=== PATIENT | female | born 1940 | race Caucasian/White ===

== ENCOUNTER 2018-04-25 09:57 | Inpatient (IN) | payer OTHER ==
[2018-04-25] VITALS (14 sets, daily range): BP systolic 112–250
[~2018-04-25] VITALS: Ht 167.6 cm; Wt 91.2 kg
[2018-04-25] MEDS ORDERED: hydrALAZINE HCL 20 MG/ML VIAL IVP ONE (10:15)
[2018-04-25] MEDS ORDERED: NITROGLYCERIN 1 INCH (GM) OINT. TP ONE (10:15)
[2018-04-25 10:37] LABS: HEMATOCRIT 46.4 % (36-48); HEMOGLOBIN 15.1 g/dL (12.0-16.0); MEAN CORPUSCULAR HEMOGLOBIN 30 pg (27-31); MEAN CORPUSCULAR HGB CONC 33 % (32-36); MEAN CORPUSCULAR VOLUME 92 fL (79.0-98.0); PLATELET COUNT (AUTO) 361 K/uL (130-430); RED BLOOD CELL COUNT(AUTO) 5.06 MIL/uL (4.2-6.2); RED CELL DISTRIBUTION WIDTH 14.1 % (9.0-15.0); WHITE BLOOD COUNT (AUTO) 21.4 K/uL (4.8-10.8)
[2018-04-25 10:48] LABS: ANION GAP 6 (5-15); CALCIUM 10.1 mg/dL (8.4-11.0); CHLORIDE 101 mmol/L (98-107); GLUCOSE 197 mg/dL (70-99); POTASSIUM 4.5 mmol/L (3.5-5.1); SODIUM SERUM 137 mmol/L (136-145); UREA NITROGEN, BLOOD 13 mg/dL (8-21)
[2018-04-25 10:52] LABS: ALANINE AMINOTRANSFERASE 32 U/L (12-78); ALBUMIN 2.9 g/dL (3.4-4.8); ASPARTATE AMINOTRANSFERASE 49 U/L (10-37); TOTAL BILIRUBIN 1.4 mg/dL (0.0-1.0)
[2018-04-25 10:54] LABS: INR 1.2 (0.8-1.2); PROTHROMBIN TIME 11.9 SECS (9.5-12.5)
[2018-04-25] MEDS ORDERED: ONDANSETRON HCL 4 MG/2 ML VIAL IVP ONE (11:00)
[2018-04-25] MEDS ORDERED: MORPHINE 2 MG/ML INJ. SYRINGE IVP ONE (11:00)
[2018-04-25 11:10] LABS: BAND % (MANUAL) 16 % (0-6); BASOPHILS % (MANUAL) 0 % (0-2); EOSINOPHILS % (MANUAL) 2 % (0-7); LYMPHOCYTES % (MANUAL) 5 % (20-46); MONOCYTES % (MANUAL) 5 % (0-11)
[2018-04-25] MEDS ORDERED: cefTRIAXone 1 GM in D5W 50 ML IV ONE (11:15)
[2018-04-25] MEDS ORDERED: cefTRIAXone 1 GM VIAL ONE (11:17)
[2018-04-25] MEDS ORDERED: FAMOTIDINE 20 MG TABLET PO ONE (12:30)
[2018-04-25] MEDS ORDERED: ACETAMINOPHEN 325 MG TABLET PO PRN (12:30)
[2018-04-25] MEDS ORDERED: LACT1CAP69 PO (12:51)
[2018-04-25] MEDS ORDERED: LACT10SO7 PO (12:51)
[2018-04-25] MEDS ORDERED: ACET-2165 PO (12:51)
[2018-04-25] MEDS ORDERED: IPRA3AMP9 INH (12:51)
[2018-04-25] MEDS ORDERED: LISI10TA5 PO (12:51)
[2018-04-25] MEDS ORDERED: AZIT250T PO (12:51)
[2018-04-25] MEDS ORDERED: OXYC-580 PO (12:51)
[2018-04-25] MEDS ORDERED: FLEETMO RC (12:51)
[2018-04-25] MEDS ORDERED: PRO40 PO (12:51)
[2018-04-25] MEDS ORDERED: CARV12.548 PO (12:51)
[2018-04-25] MEDS ORDERED: DOCU-144 PO (12:51)
[2018-04-25] MEDS ORDERED: ALBU2.5V7 INH (12:51)
[2018-04-25] MEDS ORDERED: MOM PO (12:51)
[2018-04-25] MEDS ORDERED: ROCPM1 IV (12:51)
[2018-04-25] MEDS ORDERED: CYAN250014 PO (12:51)
[2018-04-25] MEDS ORDERED: ASCO500T20 PO (12:51)
[2018-04-25] MEDS ORDERED: IPRA4AER INH ×2 (12:51)
[2018-04-25] MEDS ORDERED: BISA10SU61 RC (12:51)
[2018-04-25] MEDS ORDERED: PRED20TA PO (12:51)
[2018-04-25] MEDS ORDERED: DONE10TA44 PO (12:51)
[2018-04-25] MEDS ORDERED: MELA3TAB PO (12:51)
[2018-04-25] MEDS ORDERED: PERC10 PO ×2 (12:51)
[2018-04-25] MEDS ORDERED: DIVA500T4 PO (12:51)
[2018-04-25] MEDS ORDERED: POLY119P15 PO (12:51)
[2018-04-25] MEDS ORDERED: FURO-150 PO (12:51)
[2018-04-25] MEDS ORDERED: NEU300 PO (12:51)
[2018-04-25] MEDS: PIPERACILLIN/TAZO 3.375/DEX-IS 50 ML IV SCH ×3 (13:43→23:34)
[2018-04-25] MEDS ORDERED: MILK OF MAGNESIA 30 ML UDC PO PRN (14:15)
[2018-04-25] MEDS: IPRATROPIUM/ALBUTEROL SULFATE 3 ML AMPUL.NEB (DUONEB) INH SCH ×3 (15:17→23:32)
[2018-04-25] MEDS ORDERED: methylPREDNISolone SOD SUCC/PF 62.5 MG/ML VIAL IVP ONE (15:45)
[2018-04-25] MEDS ORDERED: FUROSEMIDE 20 MG/2 ML VIAL IVP ONE (15:45)
[2018-04-25] MEDS: GABAPENTIN 300 MG CAPSULE PO SCH ×2 (16:14→21:15)
[2018-04-25 16:29] LABS: BILIRUBIN,URINE 1+ (NEGATIVE); BLOOD, URINE 1+ (NEGATIVE); CLARITY/URINE SL CLOUDY (CLEAR); COLOR,URINE YELLOW (YELLOW); GLUCOSE,URINE NEGATIVE (NEGATIVE); KETONES,URINE TRACE (NEGATIVE); LEUKOCYTE ESTERASE ,URINE NEGATIVE (NEGATIVE); NITRITE, URINE NEGATIVE (NEGATIVE); PROTEIN URINE 3+ (NEGATIVE); UROBILINOGEN,URINE >=8 (0.2-1.0)
[2018-04-25 16:34] LABS: BACTERIA,URINE MODERATE /HPF (None Seen); RBC,URINE 0-3 /HPF (0-3); WBC,URINE 0-3 /HPF (0-3)
[2018-04-25] MEDS ORDERED: IBUPROFEN 400 MG TABLET PO PRN (17:00)
[2018-04-25] MEDS ORDERED: AZITHROMYCIN 500 MG in NS 250 ML IV SCH (18:00)
[2018-04-25] MEDS: INSULIN ASPART 100 UNITS/ML, 10 ML VIAL (NovoLOG) SUBCUT PRN ×2 (19:27→23:10)
[2018-04-25] MEDS: CARVEDILOL 12.5 MG TABLET (COREG) PO SCH (21:15)
[2018-04-25] MEDS: DIVALPROEX SODIUM 500 MG TAB.SR.24H (DEPAKOTE ER) PO SCH (21:15)
[2018-04-25] MEDS: DONEPEZIL HCL 5 MG TABLET (ARICEPT) PO SCH (21:16)
[2018-04-25] MEDS: methylPREDNISolone SOD SUCC/PF 62.5 MG/ML VIAL IVP SCH (21:19)
[2018-04-26] VITALS (18 sets, daily range): BP systolic 107–164
[2018-04-26] MEDS: IPRATROPIUM/ALBUTEROL SULFATE 3 ML AMPUL.NEB (DUONEB) INH SCH ×6 (03:22→23:10)
[2018-04-26 06:27] LABS: BASOPHILS % (AUTO) 0.2 % (0.0-2.0); EOSINOPHILS % (AUTO) 0.1 % (0.0-4.0); HEMATOCRIT 35.4 % (36-48); HEMOGLOBIN 11.6 g/dL (12.0-16.0); LYMPHOCYTES # (AUTO) 0.4 K/uL (1.0-5.5); LYMPHOCYTES % (AUTO) 5.4 % (20.5-51.5); MEAN CORPUSCULAR HEMOGLOBIN 30 pg (27-31); MEAN CORPUSCULAR HGB CONC 33 % (32-36); MEAN CORPUSCULAR VOLUME 92 fL (79.0-98.0); MONOCYTES # (AUTO) 0.3 K/uL (0.0-1.0); MONOCYTES % (AUTO) 4.7 % (1.7-9.3); NEUTROPHILS # (AUTO) 6.6 K/uL (1.8-7.7); NEUTROPHILS % (AUTO) 89.6 % (40.0-70.0); PLATELET COUNT (AUTO) 175 K/uL (130-430); RED BLOOD CELL COUNT(AUTO) 3.84 MIL/uL (4.2-6.2); RED CELL DISTRIBUTION WIDTH 14.1 % (9.0-15.0); WHITE BLOOD COUNT (AUTO) 7.3 K/uL (4.8-10.8)
[2018-04-26] MEDS: PIPERACILLIN/TAZO 3.375/DEX-IS 50 ML IV SCH ×4 (06:43→23:03)
[2018-04-26] MEDS: methylPREDNISolone SOD SUCC/PF 62.5 MG/ML VIAL IVP SCH ×3 (06:47→21:43)
[2018-04-26 07:37] LABS: ANION GAP 5 (5-15); CALCIUM 9.9 mg/dL (8.4-11.0); CHLORIDE 103 mmol/L (98-107); CREATININE 0.71 mg/dL (0.55-1.30); GLUCOSE 129 mg/dL (70-99); POTASSIUM 3.3 mmol/L (3.5-5.1); SODIUM SERUM 141 mmol/L (136-145); UREA NITROGEN, BLOOD 20 mg/dL (8-21)
[2018-04-26 07:52] LABS: ALANINE AMINOTRANSFERASE 19 U/L (12-78); ALBUMIN 2.2 g/dL (3.4-4.8); ASPARTATE AMINOTRANSFERASE 10 U/L (10-37); TOTAL BILIRUBIN 0.6 mg/dL (0.0-1.0)
[2018-04-26] MEDS ORDERED: POTASSIUM CHLORIDE 20 MEQ TAB.PRT.SR PO ONE (10:45)
[2018-04-26] MEDS ORDERED: ENOXAPARIN SODIUM 40 MG/0.4 ML SYRINGE SUBCUT ONE (11:00)
[2018-04-26] MEDS: LISINOPRIL 10 MG TABLET (PRINIVIL) PO SCH (12:01)
[2018-04-26] MEDS: FUROSEMIDE 20 MG/2 ML VIAL IVP SCH (12:01)
[2018-04-26] MEDS: FAMOTIDINE 20 MG TABLET PO SCH (12:02)
[2018-04-26] MEDS: CARVEDILOL 12.5 MG TABLET (COREG) PO SCH ×2 (12:02→21:43)
[2018-04-26] MEDS: GABAPENTIN 300 MG CAPSULE PO SCH ×3 (12:02→21:39)
[2018-04-26] MEDS: DOCUSATE SODIUM 100 MG CAPSULE PO SCH (12:02)
[2018-04-26] MEDS: DIVALPROEX SODIUM 500 MG TAB.SR.24H (DEPAKOTE ER) PO SCH ×2 (12:02→21:39)
[2018-04-26] MEDS: BALSAM PERU/CASTOR OIL 60 GM OINT...G. TP SCH (17:06)
[2018-04-26] MEDS: DONEPEZIL HCL 5 MG TABLET (ARICEPT) PO SCH (21:39)
[2018-04-26] MEDS: AZITHROMYCIN 500 MG in NS 250 ML IV SCH (21:42)
[2018-04-27] MEDS: IPRATROPIUM/ALBUTEROL SULFATE 3 ML AMPUL.NEB (DUONEB) INH SCH ×6 (03:41→23:43)
[2018-04-27] MEDS: PIPERACILLIN/TAZO 3.375/DEX-IS 50 ML IV SCH ×3 (05:24→17:41)
[2018-04-27] MEDS: methylPREDNISolone SOD SUCC/PF 62.5 MG/ML VIAL IVP SCH (06:28)
[2018-04-27 06:30] LABS: BASOPHILS % (AUTO) 0.1 % (0.0-2.0); EOSINOPHILS % (AUTO) 0.1 % (0.0-4.0); HEMOGLOBIN 12.2 g/dL (12.0-16.0); LYMPHOCYTES # (AUTO) 0.4 K/uL (1.0-5.5); LYMPHOCYTES % (AUTO) 5.5 % (20.5-51.5); MEAN CORPUSCULAR HEMOGLOBIN 30 pg (27-31); MEAN CORPUSCULAR HGB CONC 33 % (32-36); MEAN CORPUSCULAR VOLUME 92 fL (79.0-98.0); MONOCYTES # (AUTO) 0.2 K/uL (0.0-1.0); MONOCYTES % (AUTO) 3.4 % (1.7-9.3); NEUTROPHILS # (AUTO) 6.5 K/uL (1.8-7.7); NEUTROPHILS % (AUTO) 90.9 % (40.0-70.0); PLATELET COUNT (AUTO) 185 K/uL (130-430); RED BLOOD CELL COUNT(AUTO) 4.04 MIL/uL (4.2-6.2); RED CELL DISTRIBUTION WIDTH 13.8 % (9.0-15.0); WHITE BLOOD COUNT (AUTO) 7.1 K/uL (4.8-10.8)
[2018-04-27 06:43] LABS: ANION GAP 4 (5-15); CALCIUM 10.7 mg/dL (8.4-11.0); CHLORIDE 103 mmol/L (98-107); CREATININE 0.65 mg/dL (0.55-1.30); GLUCOSE 158 mg/dL (70-99); POTASSIUM 3.8 mmol/L (3.5-5.1); SODIUM SERUM 140 mmol/L (136-145); UREA NITROGEN, BLOOD 20 mg/dL (8-21)
[2018-04-27 08:00] VITALS: BP_SYST 180
[2018-04-27] MEDS: DOCUSATE SODIUM 100 MG CAPSULE PO SCH (09:43)
[2018-04-27] MEDS: ENOXAPARIN SODIUM 40 MG/0.4 ML SYRINGE SUBCUT SCH (09:43)
[2018-04-27] MEDS: FAMOTIDINE 20 MG TABLET PO SCH (09:43)
[2018-04-27] MEDS: CARVEDILOL 12.5 MG TABLET (COREG) PO SCH ×2 (09:44→21:09)
[2018-04-27] MEDS: GABAPENTIN 300 MG CAPSULE PO SCH ×3 (09:44→21:08)
[2018-04-27] MEDS: LISINOPRIL 10 MG TABLET (PRINIVIL) PO SCH (09:45)
[2018-04-27] MEDS: DIVALPROEX SODIUM 500 MG TAB.SR.24H (DEPAKOTE ER) PO SCH ×2 (09:45→21:09)
[2018-04-27] MEDS: FUROSEMIDE 20 MG/2 ML VIAL IVP SCH (09:46)
[2018-04-27] MEDS: BALSAM PERU/CASTOR OIL 60 GM OINT...G. TP SCH (09:47)
[2018-04-27 12:00] VITALS: BP_SYST 149
[2018-04-27 16:00] VITALS: BP_SYST 144
[2018-04-27] MEDS: methylPREDNISolone SOD SUCC 40 MG/ML VIAL IVP SCH (17:42)
[2018-04-27 20:50] VITALS: BP_SYST 158
[2018-04-27] MEDS: AZITHROMYCIN 500 MG in NS 250 ML IV SCH (21:08)
[2018-04-27] MEDS: DONEPEZIL HCL 5 MG TABLET (ARICEPT) PO SCH (21:09)
[2018-04-27 23:40] VITALS: BP_SYST 166
[2018-04-28] MEDS: PIPERACILLIN/TAZO 3.375/DEX-IS 50 ML IV SCH ×2 (00:09→05:54)
[2018-04-28 02:09] VITALS: BP_SYST 155
[2018-04-28] MEDS: IPRATROPIUM/ALBUTEROL SULFATE 3 ML AMPUL.NEB (DUONEB) INH SCH ×4 (03:15→19:50)
[2018-04-28] MEDS: methylPREDNISolone SOD SUCC 40 MG/ML VIAL IVP SCH (06:40)
[2018-04-28 07:40] LABS: ANION GAP 2 (5-15); CALCIUM 10.8 mg/dL (8.4-11.0); CHLORIDE 103 mmol/L (98-107); CREATININE 0.78 mg/dL (0.55-1.30); GLUCOSE 123 mg/dL (70-99); POTASSIUM 3.4 mmol/L (3.5-5.1); SODIUM SERUM 143 mmol/L (136-145); UREA NITROGEN, BLOOD 25 mg/dL (8-21)
[2018-04-28 08:11] VITALS: BP_SYST 180
[2018-04-28] MEDS: LISINOPRIL 10 MG TABLET (PRINIVIL) PO SCH (09:56)
[2018-04-28] MEDS: FAMOTIDINE 20 MG TABLET PO SCH (09:56)
[2018-04-28] MEDS: DOCUSATE SODIUM 100 MG CAPSULE PO SCH (09:56)
[2018-04-28] MEDS: CARVEDILOL 12.5 MG TABLET (COREG) PO SCH ×2 (09:57→20:40)
[2018-04-28] MEDS: DIVALPROEX SODIUM 500 MG TAB.SR.24H (DEPAKOTE ER) PO SCH ×2 (09:57→20:40)
[2018-04-28] MEDS: GABAPENTIN 300 MG CAPSULE PO SCH ×3 (09:58→20:41)
[2018-04-28] MEDS: FUROSEMIDE 20 MG/2 ML VIAL IVP SCH (09:58)
[2018-04-28] MEDS: BALSAM PERU/CASTOR OIL 60 GM OINT...G. TP SCH (09:59)
[2018-04-28] MEDS: ENOXAPARIN SODIUM 40 MG/0.4 ML SYRINGE SUBCUT SCH (09:59)
[2018-04-28 12:02] VITALS: BP_SYST 209
[2018-04-28] MEDS: cefTRIAXone 1 GM in D5W 50 ML IV SCH (12:34)
[2018-04-28] MEDS: hydrALAZINE HCL 20 MG/ML VIAL IVP PRN (12:36)
[2018-04-28] MEDS ORDERED: POTASSIUM CHLORIDE 20 MEQ TAB.PRT.SR PO ONE (15:30)
[2018-04-28 16:02] VITALS: BP_SYST 142
[2018-04-28] MEDS: PREDNISONE 20 MG TABLET PO SCH (18:24)
[2018-04-28 19:00] VITALS: BP_SYST 178
[2018-04-28 20:00] VITALS: BP_SYST 178
[2018-04-28] MEDS: AZITHROMYCIN 500 MG in NS 250 ML IV SCH (20:34)
[2018-04-28] MEDS: DONEPEZIL HCL 5 MG TABLET (ARICEPT) PO SCH (20:39)
[2018-04-29] MEDS: IPRATROPIUM/ALBUTEROL SULFATE 3 ML AMPUL.NEB (DUONEB) INH SCH ×5 (01:08→15:29)
[2018-04-29 02:19] VITALS: BP_SYST 151
[2018-04-29 04:55] LABS: ANION GAP 4 (5-15); CALCIUM 10.7 mg/dL (8.4-11.0); CHLORIDE 102 mmol/L (98-107); CREATININE 0.66 mg/dL (0.55-1.30); GLUCOSE 117 mg/dL (70-99); POTASSIUM 4.1 mmol/L (3.5-5.1); SODIUM SERUM 141 mmol/L (136-145); UREA NITROGEN, BLOOD 24 mg/dL (8-21)
[2018-04-29] MEDS: PREDNISONE 20 MG TABLET PO SCH ×2 (05:29→17:28)
[2018-04-29 08:00] VITALS: BP_SYST 189
[2018-04-29] MEDS: GABAPENTIN 300 MG CAPSULE PO SCH ×2 (09:00→15:01)
[2018-04-29] MEDS ORDERED: LISINOPRIL 20 MG TABLET PO SCH (09:00)
[2018-04-29] MEDS: DOCUSATE SODIUM 100 MG CAPSULE PO SCH (09:00)
[2018-04-29] MEDS: FAMOTIDINE 20 MG TABLET PO SCH (09:00)
[2018-04-29] MEDS: DIVALPROEX SODIUM 500 MG TAB.SR.24H (DEPAKOTE ER) PO SCH (09:01)
[2018-04-29] MEDS: CARVEDILOL 12.5 MG TABLET (COREG) PO SCH (09:03)
[2018-04-29] MEDS: FUROSEMIDE 20 MG/2 ML VIAL IVP SCH (09:03)
[2018-04-29] MEDS: ENOXAPARIN SODIUM 40 MG/0.4 ML SYRINGE SUBCUT SCH (09:04)
[2018-04-29] MEDS: BALSAM PERU/CASTOR OIL 60 GM OINT...G. TP SCH (09:08)
[2018-04-29] MEDS: cefTRIAXone 1 GM in D5W 50 ML IV SCH (10:49)
[2018-04-29] MEDS: hydrALAZINE HCL 20 MG/ML VIAL IVP PRN (11:56)
[2018-04-29 12:00] VITALS: BP_SYST 166
[2018-04-29 16:00] VITALS: BP_SYST 143
[2018-04-29 17:01] VITALS: BP_SYST 143
== END 2018-04-29 18:00 | DRG 871 ==
LOC: SED 09:57 → SIC 11:55 → STU 04-26 15:09
PROVIDERS: ADMIT Internal Medicine; ATTEND Internal Medicine
PROC: 5A09357 Assistance with Respiratory Ventilation, Less than 24 Consecutive Hours, Continuous Positive Airway Pressure (ICD-10-PCS; principal; 2018-04-25)
DX: A41.9 Sepsis, unspecified organism (principal); J96.02 Acute respiratory failure with hypercapnia; J96.01 Acute respiratory failure with hypoxia; J69.0 Pneumonitis due to inhalation of food and vomit; E44.0 Moderate protein-calorie malnutrition; J44.1 Chronic obstructive pulmonary disease with (acute) exacerbation; E11.9 Type 2 diabetes mellitus without complications; Z96.641 Presence of right artificial hip joint; F03.90 Unspecified dementia, unspecified severity, without behavioral disturbance, psychotic disturbance, mood disturbance, and anxiety; G40.909 Epilepsy, unspecified, not intractable, without status epilepticus; I11.0 Hypertensive heart disease with heart failure; I50.9 Heart failure, unspecified; T38.0X5A Adverse effect of glucocorticoids and synthetic analogues, initial encounter; Z87.891 Personal history of nicotine dependence; Z90.710 Acquired absence of both cervix and uterus; Z98.2 Presence of cerebrospinal fluid drainage device; Z88.8 Allergy status to other drugs, medicaments and biological substances; Z68.32 Body mass index [BMI] 32.0-32.9, adult; Y92.89 Other specified places as the place of occurrence of the external cause
CPT/HCPCS: 36415; 36600; 71045; 80048; 80053; 81000-TC; 82803-TC; 82962; 83605; 83880; 84484; 85007; 85025; 85027; 85610-TC; 85651-TC; 85730-TC; 86738; 87040-TC; 87081; 87086; 87449; 93005; 93306; 94640; 94660; 94760; 96365; 96375; 99291; J0360; J0456; J0696; J1030; J1650; J1815; J1940; J2270; J2405; J2543; J2930; J7050; J7060; J7512; J7620